=== PATIENT | female | born 1995 | race Caucasian/White ===

== ENCOUNTER 2018-01-09 05:46 | Inpatient (IN) ==
[2018-01-09] MEDS ORDERED: Naloxone 0.4 MG/ML INJ IVP PRN (06:23)
[2018-01-09] MEDS ORDERED: Ringers Solution, Lactated 1,000 ML IVC ONE (06:23)
[2018-01-09] MEDS ORDERED: Oxytocin 20 units/ LR 1000 mL 20 UNIT/1,000 ML BAG IVC ONE (06:29)
[2018-01-09] MEDS ORDERED: Metoclopramide 10 MG/2 ML VIAL IVP ONE (06:29)
[2018-01-09] MEDS ORDERED: Famotidine 20 MG/2 ML VIAL IVP ONE (06:29)
[2018-01-09] MEDS ORDERED: Ringers Solution, Lactated 1,000 ML IVC SCH (06:30)
[2018-01-09] MEDS ORDERED: Oxytocin 20 units/ LR 1000 mL 20 UNIT/1,000 ML BAG IVC SCH ×2 (06:30→12:04)
[2018-01-09] MEDS ORDERED: Ringers Solution, Lactated 2,000 ML ONE (06:33)
[2018-01-09 06:52] LABS: Basophils % 0.2 %; Eosinophils # 0.2 K/mcL (0.0-0.6); Eosinophils % 1.4 %; Hematocrit 33.8 % (35.3-44.9); Hemoglobin 10.7 g/dL (11.5-15.4); Immature Granulocytes % 1.8 % (0-4); Lymphocytes # 2.4 K/mcL (0.6-4.6); Lymphocytes % 18.4 %; Mean Corpuscular HGB Conc 31.7 g/dL (31.6-35.5); Mean Corpuscular Hemoglobin 24.5 pg (28.0-33.3); Mean Corpuscular Volume 77.3 fL (83.0-100.0); Mean Platelet Volume 12.8 fL (9.4-12.4); Monocytes # 0.9 K/mcL (0.0-1.3); Monocytes % 6.8 %; Neutrophils # 9.4 K/mcL (1.6-8.9); Nucleated Red Blood Cells 0.2 /100 WBC (0); Platelet Count 176 K/mcL (140-400); Red Blood Count 4.37 M/mcL (3.82-4.97); Red Cell Distribution Width 16.1 % (11.5-14.5); Segmented Neutrophils % 71.4 %
[2018-01-09] MEDS ORDERED: cefOXitin 2,000 MG in Water for inj. (sterile) 20 ML 20 ML IVP ONE (07:15)
[2018-01-09] MEDS ORDERED: MetroNIDAZOLE 500 MG/100 ML 500 MG/100 ML BAG IVPB ONE (07:15)
--- NOTE | 2018-01-09 07:25 | History & Physical Report ---
Date of Encounter: 01/09/18 Time of Encounter: 07:23 24 Hour HP Update - Instructions Instructions: If the History and Physical is less than 30 days old and was completed prior to A.M. admission and or procedure and has NOT been updated on calendar day of procedure please complete this update prior to performing procedure. - Update Patient reports changes in Medical Condition: No Changes in examination, assessment, or condition: Yes Changes in Medication: No Preop tests/diagnostics Reviewed: Yes Surgery Remains Indicated: Yes Consent for Planned Operative Procedure(s) Verified: Yes Review of Patient reveals the following changes:: Contractions, patient not appreciating them - Pre-Operative Checklist Preoperative Checklist Indicated: Yes Prophylactic Antibiotic Ordered: Yes Home Medications Include Beta Callie: No Is VTE Prophylaxis Indicated?: Yes
[2018-01-09] MEDS ORDERED: *HR* FentaNYL (PF) 100 MCG/2 ML VIAL ONE (07:33)
[2018-01-09] MEDS ORDERED: *HR* Morphine Sulfate/PF 10 MG/10 ML AMPUL ONE (07:33)
[2018-01-09] MEDS ORDERED: Ringers Solution, Lactated 1,000 ML ONE (07:35)
--- NOTE | 2018-01-09 07:36 | Anesthesia Evaluation PreOp ---
Date of Encounter: 01/09/18 Time of Encounter: 07:31 - Past History Planned Operation: Repeat , BPS Cardiac History: Denies any Significant Hx Pulmonary History: Asthma, Snore DESIGN INSERTER History: Denies Any Significant HX Other Medical History: GERD Anesthesia History: No Prior Anesthetic Complications, Past Anesthesia : Yes (, IUP 39+3 weeks) Alcohol Use: none Drug use: none Medications and Allergies Ferrous Sulfate [Iron] 1 tab PO DAILY 01/09/18 [History] Mometasone/Formoterol [Dulera 100 Mcg/5 Mcg Inhaler] 13 gm IH PRN PRN 01/09/18 [ History] Vit/Iron Fumarate/FA [ Tablet] 1 each PO DAILY 01/09/18 [ History] 3 Allergy/AdvReac Type Severity Reaction Status Date / Time No Known Allergies Allergy Verified 08/07/16 22:51 - Meds/Allergy Pre-op Review Medications Reviewed: Yes Allergies Reviewed: Yes Beta Blockers on Current Med List: No Anesthesia Results - Labs 01/09/18 06:00 Laboratory Tests 08/08/16 08/08/16 01/09/18 00:14 00:14 06:00 WBC 13.2 H Hgb 10.7 L Hct 33.8 L Plt Count 176 PT 12.8 H INR 1.2 APTT 28.9 Sodium 138 Potassium 3.8 BUN 17 Creatinine 0.72 Anesthesia Exam O2 Sat Height 1.63 m Weight 89.5 kg 3 Vital Signs Time BP Pulse Resp O2 Sat Height: 5'4'' Weight: 197 lbs NPO (# of Hours): 8 Pain Scale: 0 Pain Scale Used: Numeric (1 - 10) - HEENT Pupil (Motor): EOMI Mallampati: III Teeth: Normal Oral Opening: Greater than 3 - DESIGN INSERTER LOC: Oriented DESIGN INSERTER Motor: Normal RUE, Normal LUE, Normal RLE, Normal LLE, Normal Face DESIGN INSERTER Sensory: Normal: RUE, LUE, RLE, LLE, Face - Cardiac Rhythm: Regular Murmur: None - Pulmonary Breath Sounds: bilateral Clear Anesthesia Assess/Plan ASA Score: 2 Modified Darci Scale for Level of Consciousness: Cooperative, oriented, and tranquil Anesthetic Plan: Regional Monitoring Plan: Standard Monitors Recovery Plan: PACU
[2018-01-09] MEDS ORDERED: EPHEDrine 50 MG/ML VIAL ONE (07:37)
[2018-01-09] MEDS ORDERED: *HR* Phenylephrine 10 MG/ML VIAL ONE (07:38)
[2018-01-09 07:55] LABS: Amphetamine Screen,Urine Negative ng/mL (Cutoff=1000); Barbiturate Screen,Urine Negative ng/mL (Cutoff=200); Benzodiazepines Screen,Urine Negative ng/mL (Cutoff=200); Cannabinoid Screen,Urine Negative ng/mL (Cutoff = 50); Cocaine Screen,Urine Negative ng/mL (Cutoff= 300); Opiate Screen,Urine Negative ng/mL (Cutoff=300); Phencyclidine Screen,Urine Negative ng/mL (Cutoff=25)
[2018-01-09] MEDS ORDERED: Ketorolac 30 MG/ML VIAL ONE (08:22)
[2018-01-09] MEDS ORDERED: Dexamethasone 4 MG/ML VIAL ONE (08:22)
[2018-01-09] MEDS ORDERED: Ondansetron 4 MG/2 ML VIAL ONE (08:22)
[2018-01-09] MEDS ORDERED: Acetaminophen IV 1,000 MG/100 ML INFUS..BTL IVPB ONE (09:08)
[2018-01-09] MEDS ORDERED: Ondansetron 4 MG/2 ML VIAL IVP PRN ×2 (09:08→12:04)
[2018-01-09] MEDS ORDERED: *HR* Morphine 2 MG/ML SYRINGE IVP PRN (09:08)
[2018-01-09] MEDS ORDERED: Ondansetron 4 MG/2 ML VIAL IVP ONE (09:08)
[2018-01-09] MEDS ORDERED: *HR* OxyCODONE/APAP 5/325 TABLET PO PRN (09:08)
--- NOTE | 2018-01-09 09:18 | Anesthesia Procedures ---
Date of Encounter: 01/09/18 Time of Encounter: 08:00 Procedures: Anesthesia - Epidural/Spinal Patient ID/Chart reviewed: Yes Patient examined: Yes OB Eval: Gestational age: 39.6 OB Eval: : 2 OB Eval: Hx Para: 1 OB Eval: Contractions: Non-stressed pattern Consent Obtained: Yes Supplemental Oxygen: None/Room Air Site Prep: Aseptic Technique, Sterile prep and drape, Povidone-Iodine 1% Patient position: upright Amount of Local Anesthetic used: 3 Interspace Used: L4-L5 Loss of Resistance (NALLELY): No Blood: No CSF: Yes Paresthesia: Yes Vitals + FHT's: stable thoughout see nursing notes. uneventful spinal, bupicicaine 0.5% 2ml, fentanyl 10mcg, duramorph 0.3mg
--- NOTE | 2018-01-09 09:43 | OB/GYN Procedure Note ---
Section - Date of procedure: 01/09/18 Preop diagnosis: desires repeat , desires sterilization Post-op diagnosis: same (Dense anterior adhesions from the uterus to the anterior abdominal wall) Procedure: repeat low transverse, bilateral tubal ligation Surgeon: Bailey Nguyen Blood Loss: 500 Was there an hotel assistant manager present: No Anesthesiologist: Teddy Foote Underwriting Consultant: Alysha Foote Anesthesia Type: Spinal section complications: none Disposition: L&D Recovery Room Specimens: Placenta, Cord segment, Cord blood, Right tube segment, Left tube segment - Infant (s) Infant A Infant Delivery Date: 01/09/18 Infant Delivery Time: 08:46 Presentation: vertex Position: SARITHA Route of delivery: other ( section) Gender: Male Viability: Viable Pounds: 8 Ounces: 7 Gram Weight: 3.83 kg at 1 minute: 8 at 5 minutes: 9 Specimens collected: cord blood Placenta: spontaneous Cord: nuchal cord (x2), 3 umbilical vessels, nuchal reduced - Narrative Narrative: The patient was taken to the operating room and given spinal anesthesia adequate for abdominal and pelvic surgery. She was prepped and draped in the usual sterile fashion. Timeout was completed. A Pfannenstiel skin incision was made above and below the previous scar. The scar was excised. The subcutaneous tissue was then sharply dissected down to the fascia. The fascia was incised in the midline and extended bilaterally. 2 straight Raffi clamps were placed on the inferior fascial edge and the fascia was bluntly and sharply dissected away from the rectus muscles. This was repeated superiorly. The rectus muscles were sharply bissected above the uterus were dense adhesions were identified. Peritoneum was bluntly entered above these adhesions and extended superior. The area of adhesions was then explored digitally and was able to be palpated completely around it. The peritoneum was then entered close to the inferior margin of the dense adhesions. The peritoneum was then extended inferiorly. Bladder blade was placed to protect the bladder. The dense anterior uterine adhesions were then lysed with the Bovie. Good hemostasis achieved. Vesicouterine peritoneum was incised and reflected inferiorly and the bladder blade was replaced to protect the bladder. A low transverse incision was then made through the lower uterine segment down to the amnion. This was extended with bandage scissors in a U fashion.. The amnion was bluntly entered and clear fluid noted. This was followed by the vertex delivery of a viable was placed on the maternal abdomen and bulb suctioned. The cord was clamped and cut after a delay. Infant was handed to the nursery care team. Cord blood was obtained. The placenta was delivered spontaneous and intact. The uterine cavity was digitally palpated and wiped clean with a moist lap sponge. There were no placental remnants identified. A ring forcep is used to dilate the cervix and then discarded off the field. Clamps were placed on the uterine angles and the uterine incision was closed using 0 Vicryl suture in a running, locking fashion. A second imbricating layer completed the uterine closure with 0 Vicryl suture. Good hemostasis was achieved. Attention was then placed on the fallopian tubes. The tubes and ovaries appeared grossly normal bilaterally with no tubo-ovarian adhesions noted bilaterally. The left fallopian tube was grasped with a Jan clamp and O-plain suture was used to doubly ligate a proximal loop of tube. The loop of tube was then excised and sent to pathology. Good hemostasis was noted in the tubal lumens. This was repeated for the patient's right side. Again good hemostasis noted in the tubal lumens. The uterus was then examined and noted to be hemostatic. The pelvis was then irrigated with a copious amount of sterile water. Again good hemostasis was identified. The peritoneal edges and rectus muscles were then examined and hemostasis achieved. The fascia was then closed using an 0 PDS loop in a running nonlocking fashion. Subcutaneous tissue was irrigated with sterile water, good hemostasis was achieved. The subcutaneous tissue was closed with O stratafix. The skin was then closed using a 4-0 Monocryl in a running subcuticular fashion. The incision was then sealed with Dermabond mesh. Good hemostasis was noted. The Fleming was noted to be draining clear yellow urine at the end of the procedure. All sponge and instrument counts are correct at the end of the procedure. The patient was taken to the recovery room in stable condition.
[2018-01-09] MEDS ORDERED: Rho Immune Globulin 1,500 UNIT SYRINGE IM ONE (12:04)
[2018-01-09] MEDS ORDERED: Metoclopramide 10 MG/2 ML VIAL IVP PRN (12:04)
[2018-01-09] MEDS ORDERED: Sennosides 8.6 MG TABLET PO PRN (12:04)
[2018-01-09] MEDS ORDERED: Simethicone 80 MG TAB.CHEW PO PRN (12:04)
[2018-01-09] MEDS: Ibuprofen 600 MG TABLET PO SCH ×3 (17:03→21:25)
[2018-01-10] MEDS: Ibuprofen 600 MG TABLET PO SCH ×3 (03:33→20:47)
[2018-01-10 04:43] LABS: Basophils % 0.2 %; Eosinophils % 0.2 %; Hematocrit 26.9 % (35.3-44.9); Immature Granulocytes % 1.2 % (0-4); Lymphocytes # 2.3 K/mcL (0.6-4.6); Lymphocytes % 14.9 %; Mean Corpuscular HGB Conc 31.6 g/dL (31.6-35.5); Mean Corpuscular Hemoglobin 23.9 pg (28.0-33.3); Mean Corpuscular Volume 75.8 fL (83.0-100.0); Mean Platelet Volume 12.2 fL (9.4-12.4); Monocytes # 1.1 K/mcL (0.0-1.3); Platelet Count 165 K/mcL (140-400); Red Blood Count 3.55 M/mcL (3.82-4.97); Segmented Neutrophils % 76.5 %
[2018-01-10 04:44] LABS: Hemoglobin 8.5 g/dL (11.5-15.4)
[2018-01-10] MEDS ORDERED: Rho Immune Globulin 1,500 UNIT SYRINGE IM ONE (07:45)
[2018-01-10] MEDS: Prenatal Vit/FA 1 EACH TABLET PO SCH (07:45)
[2018-01-10] MEDS: *HR* OxyCODONE/APAP 5/325 TABLET PO PRN ×2 (08:51→19:15)
--- NOTE | 2018-01-10 13:18 | OB/GYN Progress Note ---
Date of Encounter: 01/10/18 Time of Encounter: 08:30 - Assessment and Plan (1) delivery delivered Current Visit: Yes Status: Acute The patient is doing well postoperatively (2) Encounter for tubal ligation Current Visit: Yes Status: Acute s/p bilateral tubal ligation (3) Uterus adhesion, delivered, current hospitalization Current Visit: Yes Status: Acute Anterior uterine adhesions lysed at the time of c/s (4) Anemia, Current Visit: Yes Status: Acute asymptomatic post op Subjective - Subjective Principal diagnosis: POD 1rpt C/S w/ BPS Interval history: Patient is status post repeat with tubal ligation in which she had dense anterior adhesions of the uterus to the abdominal wall. Today she reports that her nausea has resolved. She is tolerating regular diet. She is receiving her RhoGAM injection after I finished my visit. Her was still in NICU but symptoms were improving and it seemed to be a TTN. She reports her pain is controlled , she has had very small clots and no heavy bleeding. She is requesting a binder although she had stated previously that the binder she had with her last caused her to get hives. She is planning to use this binder on the outside of her clothing. She has had no fevers or chills, she has been up without feeling lightheaded or dizzy Patient reports: appetite normal, ambulating normally, no dizzy ambulation : in NICU Objective - Vital Signs Latest vital signs: Vital Signs Temp Pulse Resp BP Pulse Ox 01/10/18 07:50 98.2 F 80 12 121/74 98 01/10/18 03:53 98.1 F 70 16 113/68 99 01/10/18 00:04 98.4 F 83 16 114/63 99 01/09/18 19:00 98 F 100 16 134/74 97 01/09/18 18:52 16 01/09/18 17:31 98 F 97 16 124/81 96 01/09/18 15:04 97.5 F L 100 16 118/72 98 01/09/18 14:00 98.3 F 86 16 118/73 96 Intake and Output 01/09/18 01/10/18 01/10/18 23:59 07:59 15:59 Intake Total 0 / 0 600 / 600 Output Total 3800 / 3800 2550 / 2550 Balance -3800 / -3800 -1950 / -1950 Intake: Oral 0 / 0 600 / 600 Output: Urine 2049 / 2049 Catheter 3800 / 3800 500 / 500 Other: Meal Breakfast Percent of Meal Consumed 80% Weight 88.587 kg Patient Weight 01/10/18 23:59 Weight 88.587 kg - Exam Lungs: bilateral: normal Chest: Normal S1, Normal S2 Extremities: Present: edema. Absent: tenderness Abdomen: Present: soft, tenderness Incision: Present: normal, dry, intact, dressed Uterus: Present: firm, tenderness (Appropriate) - Labs Labs: Laboratory Results - last 24 hr 01/10/18 04:13 WBC 15.7 H RBC 3.55 L Hgb 8.5 L D Hct 26.9 L MCV 75.8 L MCH 23.9 L MCHC 31.6 RDW 16.0 H Plt Count 165 MPV 12.2 Immature Gran % 1.2 Seg Neutrophils % 76.5 Lymphocytes % 14.9 Monocytes % 7.0 Eosinophils % 0.2 Basophils % 0.2 Neutrophils # 12.0 H Lymphocytes # 2.3 Monocytes # 1.1 Eosinophils # 0.0 Basophils # 0.0 - Allied health notes Allied health notes reviewed: nursing
[2018-01-11] MEDS: Ibuprofen 600 MG TABLET PO SCH ×2 (02:51→08:47)
[2018-01-11 08:26] VITALS: BP 132/80
[2018-01-11] MEDS: Prenatal Vit/FA 1 EACH TABLET PO SCH (08:47)
--- NOTE | 2018-01-11 12:24 | Discharge Summary ---
Date of Encounter: 01/11/18 Time of Encounter: 12:21 - Discharge Diagnosis (1) delivery delivered Priority: Primary Status: Acute Comments: Stable POD#2, Meeting all PP milestone, pain well managed, tolerates regular diet, , desires discharge. (2) Anemia, Priority: Secondary Status: Acute Comments: will discharge home on iron - Discharge Medications Prescriptions: OxyCODONE/APAP 5/325 [Percocet 5/325 MG] 1 each PO Q4HR PRN 5 Days #20 tablet PRN Reason: Moderate pain 4-6 Ibuprofen [Motrin] 600 mg PO Q6HR #60 tablet Docusate [Colace] 100 mg PO BID #60 capsule Ferrous Sulfate 325 mg PO BIDWM #60 tablet Home Medications: Mometasone/Formoterol [Dulera 100 Mcg/5 Mcg Inhaler] 13 gm IH PRN PRN 01/09/18 [ History] Vit/Iron Fumarate/FA [ Tablet] 1 each PO DAILY 01/09/18 [ History] Calcium Carbonate [Tums] 1,000 mg PO Q4H PRN tab.chew 01/11/18 [Rx] Docusate [Colace] 100 mg PO BID #60 capsule 01/11/18 [Rx] Ferrous Sulfate 325 mg PO BIDWM #60 tablet 01/11/18 [Rx] Ibuprofen [Motrin] 600 mg PO Q6HR #60 tablet 01/11/18 [Rx] OxyCODONE/APAP 5/325 [Percocet 5/325 MG] 1 each PO Q4HR PRN 5 Days #20 tablet [Rx] Vit/FA 1 each PO DAILY tablet 01/11/18 [Rx] Simethicone [Gas-X] 80 mg PO TID PRN tab.chew 01/11/18 [Rx] Allergies/Adverse Reactions: 3 Allergy/AdvReac Type Severity Reaction Status Date / Time No Known Allergies Allergy Verified 08/07/16 22:51 Data Procedures and tests throughout hospitalization: Laboratory Tests 01/09/18 01/09/18 01/09/18 06:00 06:00 09:50 WBC 13.2 H RBC 4.37 Hgb 10.7 L Hct 33.8 L MCV 77.3 L MCH 24.5 L MCHC 31.7 RDW 16.1 H Plt Count 176 MPV 12.8 H Immature Gran % 1.8 Seg Neutrophils % 71.4 Lymphocytes % 18.4 Monocytes % 6.8 Eosinophils % 1.4 Basophils % 0.2 Neutrophils # 9.4 H Lymphocytes # 2.4 Monocytes # 0.9 Eosinophils # 0.2 Basophils # 0.0 Nucleated RBCs/100 WBC 0.2 H Urine Opiates Screen Negative Ur Barbiturates Screen Negative Ur Phencyclidine Scrn Negative Ur Amphetamines Screen Negative U Benzodiazepines Scrn Negative Urine Cocaine Screen Negative U Marijuana (THC) Screen Negative Ur Drug Screen Interp See Below Screen NEGATIVE Baby's Blood Type A RH POSITIVE Mother's Blood Type O RH NEGATIVE Rhogam Indicated YES Rhogam Req for Mother 1 01/10/18 04:13 WBC 15.7 H RBC 3.55 L Hgb 8.5 L D Hct 26.9 L MCV 75.8 L MCH 23.9 L MCHC 31.6 RDW 16.0 H Plt Count 165 MPV 12.2 Immature Gran % 1.2 Seg Neutrophils % 76.5 Lymphocytes % 14.9 Monocytes % 7.0 Eosinophils % 0.2 Basophils % 0.2 Neutrophils # 12.0 H Lymphocytes # 2.3 Monocytes # 1.1 Eosinophils # 0.0 Basophils # 0.0 Nucleated RBCs/100 WBC Urine Opiates Screen Ur Barbiturates Screen Ur Phencyclidine Scrn Ur Amphetamines Screen U Benzodiazepines Scrn Urine Cocaine Screen U Marijuana (THC) Screen Ur Drug Screen Interp Screen Baby's Blood Type Mother's Blood Type Rhogam Indicated Rhogam Req for Mother Date of admission: 01/09/18 05:46 Primary care physician: LUIS FERNANDO Toussaint Discharging clinician: Vicky Lizarraga Anticipated date of discharge: 01/11/18 - Patient Status Disposition: Home, Self-Care Condition: Good Functional capacity at discharge: independent ambulation Overall status at discharge: patient is progressing back to baseline - Discharge Instructions Instructions: Anemia (GEN) Follow Up With: Gladys Cuevas CNP [Primary Care Provider] - Bailey Mueller MD [Partnered Physician] - - Diet and Activity Activity: resume usual activities as tolerated Diet: regular diet Hospital Course Reason for admission: section Delivery: section Episiotomy: none Laceration: none Other procedures: tubal ligation complications: none Discharge diagnosis: IUP at term delivered [place] baby: male Hospital course: Section - Date of procedure: 01/09/18 Preop diagnosis: desires repeat , desires sterilization Post-op diagnosis: same (Dense anterior adhesions from the uterus to the anterior abdominal wall) Procedure: repeat low transverse, bilateral tubal ligation Surgeon: Bailey Nguyen Blood Loss: 500 Was there an speech assistant present: No Anesthesiologist: Teddy Foote Overhauler Bus Truck: Alysha Foote Anesthesia Type: Spinal section complications: none Disposition: L&D Recovery Room Specimens: Placenta, Cord segment, Cord blood, Right tube segment, Left tube segment - Infant (s) A Delivery Date: 01/09/18 Infant Delivery Time: 08:46 Presentation: vertex Position: SARITHA Route of delivery: other ( section) Gender: Male Viability: Viable Pounds: 8 Ounces: 7 Gram Weight: 3.83 kg at 1 minute: 8 at 5 minutes: 9 Specimens collected: cord blood Placenta: spontaneous Cord: nuchal cord (x2), 3 umbilical vessels, nuchal reduced Stable in PP and appropriate for discharge. OAARS reviewed Time Attestation: Total time spent providing and/or coordinating discharge services: Time Spent: Less than 30 minutes - VTE Reasons for not Prescribing Prophylaxis: Treatment not Indicated - Low risk for VTE Documentation of Mechanical Device: Intermittent pneumatic compression device Exam - Constitutional Vitals: Temp Pulse Resp BP Pulse Ox 98 F 98 12 132/80 99 01/11/18 07:50 01/11/18 07:50 01/11/18 07:50 01/11/18 07:50 01/11/18 07:50 General appearance IM: A&O X 3 - Respiratory Respiratory exam: Present: CTAB - Cardiovascular Cardiovascular exam IM: Present: RRR - GI/Abdominal GI/Abdominal exam IM: soft Incision: intact - Uterine Tone: Firm Uterus Position: At Umbilicus - Extremities Exam Extremities exam IM: Present: normal capillary refill, pedal edema - Neurological Exam Neurological exam: normal gait, oriented X3 - Psychiatric Additional comments: Reports good mood
== END 2018-01-11 14:15 | disposition home or self-care (01) | DRG 766 ==
LOC: 1NENULAB 05:46 → 1NENUOBS 10:30
PROVIDERS: ADMIT Obstetrics & Gynecology; ATTEND Obstetrics & Gynecology